=== PATIENT | male | born 1985 | race Hispanic/Latino ===

== ENCOUNTER 2018-02-24 18:40 | Emergency (ER) | payer SELFPAY ==
[~2018-02-24 18:40] MED LIST: ISOVUE-370 76%-LOCM 1 ML ONE
[2018-02-24 19:02] LABS: #Basophils 0.2 thou/uL (0.0-0.2); #Eosinphils 0.9 thou/uL (0.0-0.7); #Lymphocytes 5.8 thou/uL (1.20-3.40); #Monocytes 0.9 thou/uL (0.11-0.59); #Neutrophils 9.2 thou/uL (1.40-6.50); %Basophils 0.9 % (0.0-1.0); %Eosinophils 5.2 % (0.0-10.0); %Lymphocytes 34.1 % (21.0-51.0); %Monocytes 5.5 % (0.0-10.0); %Neutrophils 54.3 % (42.0-75.0); Hemoglobin 16.5 g/dL (14.0-18.0); Mean Corpuscular HGB CONC 33.7 g/dL (32.0-36.0); Mean Corpuscular Hemoglobin 32.3 pg (27.0-31.0); Mean Corpuscular Volume 95.9 fL (78.0-98.0); Mean Platelet Volume 7.4 fL (7.4-10.4); Platelet Count 367 thou/uL (130-400); Red Blood Cell (RBC) Count 5.11 mill/uL (4.70-6.10); White Blood Cell (WBC) Count 16.9 thou/uL (4.8-10.8)
[2018-02-24] MEDS ORDERED: Ketorolac Tromethamine 30 MG/ML VIAL ONE (19:02)
[2018-02-24 19:09] LABS: Prothrombin Time 13.3 SEC (12.0-14.7)
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
[2018-02-24 19:16] LABS: ALT (SGPT) 24 U/L (8-55); AST (SGOT) 25 U/L (5-34); Albumin 4.2 g/dL (3.5-5.0); Alkaline Phosphatase 98 U/L (40-150); Anion Gap 17 mmol/L (10-20); BUN (Urea Nitrogen) 13 mg/dL (8.9-20.6); Bilirubin, Total 0.5 mg/dL (0.2-1.2); Calc. Creatinine Clearance 0 mL/min (70-130); Calcium 8.5 mg/dL (7.8-10.44); Carbon Dioxide 18 mmol/L (22-29); Chloride 112 mmol/L (98-107); Estimated GFR-MDRD Greater than 90; Globulin 2.8 g/dL (2.4-3.5); Glucose 116 mg/dL (70-105); Potassium 3.6 mmol/L (3.5-5.1); Sodium 143 mmol/L (136-145)
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
[2018-02-24 19:25] LABS: Acetaminophen Less than 6.0 mcg/mL (10.0-30.0); Alcohol 183 mg/dL (Less than 10); CK (CPK) 144 U/L (30-200); Salicylate Less than 8.0 mg/dL (15.0-30.0)
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
[2018-02-24] MEDS ORDERED: Lidocaine 1% w/Epinephrine 1:100K 20 ML VIAL ONE (20:50)
[2018-02-24] MEDS ORDERED: Fentanyl 100 MCG/2 ML VIAL ONE (21:52)
[2018-02-24] MEDS ORDERED: Adacel (T-DAP) 0.5 ML VIAL ONE (21:56)
[2018-02-24] MEDS ORDERED: Ampicillin/Sulbactam 3 GM in Sodium Chloride 0.9% 100 ML IVPB SCH (22:00)
[2018-02-24 22:49] LABS: Lactic Acid 2.3 mmol/L (0.5-2.2)
[2018-02-25] MEDS ORDERED: PROPOFOL 20 ML ONE ×2 (00:06→01:00)
[2018-02-25] MEDS ORDERED: Lidocaine 1% w/Epinephrine 1:100K 20 ML VIAL ONE (01:05)
[2018-02-25] MEDS ORDERED: Ampicillin/Sulbactam 3 GM in Sodium Chloride 0.9% 100 ML IVPB SCH (04:00)
[2018-02-25] MEDS ORDERED: HYDROcodone/Acetaminophen 10/325 mg Tablet ONE (04:27)
[2018-02-25 05:36] LABS: Medtox Reader # READER 4
[2018-02-25 05:37] LABS: Amphetamine Not Detected (NotDetected); Benzodiazepine Screen Not Detected (NotDetected); Cocaine Metabolite Screen Detected (NotDetected); Methadone Not Detected (NotDetected); Methamphetamine Not Detected (NotDetected); Opiate Screen Not Detected (NotDetected); Phencyclidine (PCP) Not Detected (NotDetected); THC/Cannabinoid Screen Not Detected (NotDetected); Tricyclic Screen Not Detected (NotDetected)
[2018-02-25 05:38] LABS: Barbiturates Screen Not Detected (NotDetected); Medtox Control Line Valid? VALID (VALID); Oxycodone Screen Not Detected (NotDetected)
[2018-02-25] MEDS ORDERED: Ibuprofen 800 MG TAB ONE (05:44)
[2018-02-25 05:46] LABS: Bilirubin Negative (Negative); Blood, Urine Negative (Negative); Clarity CLEAR (Clear); Glucose, Urine (Dipstick) Negative (Negative); Leukocyte Negative (Negative); Nitrite Negative (Negative); Protein, Urine (Dipstick) Negative (Neg-Trace); Urobilinogen 0.2 mg/dL (0.2-1.0)
[2018-02-25 05:50] LABS: Specific Gravity, Urine 1.048 (1.002-1.036)
== END 2018-02-25 05:50 | disposition home or self-care (01) ==
LOC: ERS 18:40 → EDBD 18:40 → ERS 02-25 05:50
DX: S02.82XA Fracture of other specified skull and facial bones, left side, initial encounter for closed fracture (principal); S02.81XA Fracture of other specified skull and facial bones, right side, initial encounter for closed fracture; S01.81XA Laceration without foreign body of other part of head, initial encounter; S01.312A Laceration without foreign body of left ear, initial encounter; S01.01XA Laceration without foreign body of scalp, initial encounter; S01.21XA Laceration without foreign body of nose, initial encounter; S01.112A Laceration without foreign body of left eyelid and periocular area, initial encounter; V89.2XXA Person injured in unspecified motor-vehicle accident, traffic, initial encounter; W22.10XA Striking against or struck by unspecified automobile airbag, initial encounter
CPT/HCPCS: 12001; 12015; 36415; 70450; 70486; 71045; 71260; 72125; 74177; 80053; 80306; 80307; 81003; 82550; 83605; 85025; 85610; 85730; 86850; 86900; 86901; 90715; 93005; 96361; 96365; 96366; 96375; 99156; 99157; G0390; J0295; J1885; J2001; J2704; J3010; J7050

== ENCOUNTER 2018-02-26 18:23 | Emergency (ER) | payer SELFPAY ==
[2018-02-26] MEDS ORDERED: Ketorolac Tromethamine 30 MG/ML VIAL ONE ×2 (18:55→18:58)
[2018-02-26] MEDS ORDERED: Bacitracin Zinc 1 Packet ONE (19:01)
== END 2018-02-26 19:20 | disposition home or self-care (01) ==
LOC: ERS 18:23
DX: S01.81XD Laceration without foreign body of other part of head, subsequent encounter (principal); S01.01XD Laceration without foreign body of scalp, subsequent encounter
CPT/HCPCS: 96372; J1885